=== PATIENT | female | born 1995 | race Two or more races ===

== ENCOUNTER 2016-08-01 13:02 | Outpatient (CLI) | payer SELFPAY ==
[~2016-08-01] VITALS: Ht 152.4 cm; Wt 58.0 kg
[2016-08-01 13:10] VITALS: BP 117/69; PULSE 113; RESP 18; Ht 152.4 cm; Wt 58.0 kg
[2016-08-01 14:00] LABS: ADD UMIC NO; URINE BILIRUBIN (Dip) NEGATIVE (NEGATIVE); URINE BLOOD (Dip) NEGATIVE (NEGATIVE); URINE COLOR LT. YELLOW (YELLOW); URINE GLUCOSE (Dip) NEGATIVE (NEGATIVE); URINE KETONES (Dip) NEGATIVE (NEGATIVE); URINE LEUKOCYTE ESTERASE (Dip) NEGATIVE (NEGATIVE); URINE NITRITE (Dip) NEGATIVE (NEGATIVE); URINE TOTAL PROTEIN (Dip) NEGATIVE (NEGATIVE); URINE UROBILINOGEN (Dip) 0.2 E.U./dL (0.1-1.0)
--- NOTE | 2016-08-01 14:03 | RADRPT ---
PROCEDURE: US OB biophysical profile. CLINICAL INDICATION: decreased movements, labor TECHNIQUE: Multiple sonographic images of the pelvis were obtained. The images were reviewed on a PACS workstation. COMPARISON: No prior studies are available for comparison. FINDINGS: There is a single viable intrauterine gestation. Cardiac activity is present with 144 beats per min james. There is a vertex presentation. The placenta is posterior. There is no evidence of placental abruption. There is a normal amount of amniotic fluid with an DARCI = 19.5 cm. Biophysical profile: movement 2/2 tone 2/2. breathing 2/2 DARCI 2/2 Total 10/07 RPTAT: AA . IMPRESSION: Normal biophysical profile. . .Shankar Viramontes MD, MD Date Time Electronically viewed and signed by .Shankar Viramontes MD, MD on 08/01/2016 14:03 .S/
--- NOTE | 2016-08-01 14:57 | TRIAGE ---
OB Triage Datetime Report Generated by CPN: 08/01/2016 14:57 Datetime: 08/01/2016 14:48 Labor Evaluation Frequency: irreg Monitor Mode: External Duration (sec)2399: 30-100 Quality: Mild Pattern: Normal: <= 5 Contractions in 10 Minutes Resting Tone [place]: Relaxed Heart Rate FHR Baseline Rate: 135 Monitor Mode: External US Variability: Moderate 6-25 bpm Accelerations: 15X15 Decelerations: None Category: Category I Pain Type: Cramping Pain Location: Abdomen; Back Datetime: 08/01/2016 14:15 Comments: maternal pulse, pt. sitting up Datetime: 08/01/2016 13:53 Labor Evaluation Frequency: x1 Monitor Mode: External Duration (sec)2399: 3 min Quality: Mild Pattern: Normal: <= 5 Contractions in 10 Minutes Resting Tone [place]: Relaxed Heart Rate FHR Baseline Rate: 145 Monitor Mode: External US Variability: Moderate 6-25 bpm Accelerations: 15X15 Decelerations: None Category: Category I Pain Assessment Pain Presence: Constant Pain Type: Cramping Pain Location: Back Pain Assessment Comments: pain @ lower pain _ lower abdominal Datetime: 08/01/2016 13:15 Vaginal Exam Dilatation (cms): 0.0 Exam By: wliu Datetime: 08/01/2016 13:14 Assessment Type: Triage Maternal Assessment Level of Consciousness: Fully Conscious DTR's/Clonus: DTRs 2+; No Clonus Headache: Denies Blurred Vision: No Respiratory Effort: Unlabored; Regular Rhythm; Equal Expansion Breath Sounds, Left: Clear and Equal Breath Sounds, Right: Clear and Equal Nausea/Vomiting: Denies RUQ Epigastric Pain: Denies Facial Edema: None Fall Risk Assessment History of Falling: (0) No Secondary Diagnosis: (0) No Ambulatory Aid: (0) Bedrest/Nurse Assist IV Therapy: (0) No Gait: (0) Normal/Bedrest/Immobile Mental Status: (0) Oriented to Own Ability Fall Score: 0 Fall Risk Score Definition: No Risk: No action required Datetime: 08/01/2016 13:13 EGA: 37.2 Datetime: 08/01/2016 13:11 Time of Arrival: 08/01/2016 13:00 Arrived By: Ambulatory Arrived From: Home Chief Complaint: pt. came to hospital c/o lower back and lower abdominal pain, pain level 9/10, co nt. pain. deny vag. bleeding, deny leaking Movement: Present Rupture of Membranes: Denies Vaginal Bleeding: None Vaginal Discharge: Denies Recent Sexual Intercouse: Denies Abdominal Trauma: Not Applicable Patient Complaints: Other Additional Patient Complaints: r/o labor Time Provider Notified: 08/01/2016 13:10 Provider Notified: Initial Plan: ua, bpp
--- NOTE | 2016-08-01 16:56 | QN ---
Documentation Comment iup 35 weeks co of ucx vss exam wnl os closed cat I a/p iup 37 weeks false labor CHRISTA PURCELL MD Aug 01, 2016 16:56
== END 2016-08-01 15:00 | disposition home or self-care (01) ==
LOC: OBT 13:02 → L-D 13:04 → OBT 15:00
PROVIDERS: ATTEND Obstetrics & Gynecology
DX: O62.9 Abnormality of forces of labor, unspecified (principal); O47.1 False labor at or after 37 completed weeks of gestation; Z3A.35 35 weeks gestation of pregnancy
CPT/HCPCS: 76818; 81003; G0463

== ENCOUNTER 2016-08-13 17:01 | Outpatient (CLI) | payer BC ==
[~2016-08-13] VITALS: Ht 152.4 cm; Wt 59.4 kg
[2016-08-13] MEDS ORDERED: PRENAT PO (17:15)
--- NOTE | 2016-08-13 19:27 | RADRPT ---
PROCEDURE: US OB biophysical profile. CLINICAL INDICATION: evaluation TECHNIQUE: Multiple sonographic images of the pelvis were obtained. The images were reviewed on a PACS workstation. COMPARISON: Obstetrical ultrasound from 08/01/2016 FINDINGS: There is a single viable intrauterine gestation. Cardiac activity is present with 139 beats per min james. There is a vertex presentation. The placenta is fundal. There is no evidence of placental abruption. There is a normal amount of amniotic fluid with an DARCI = 15.8 cm. Biophysical profile: movement 2/2 tone 2/2. breathing 2/2 DARCI 2/2 Total 10/07 RPTAT: AA . IMPRESSION: Normal biophysical profile. Physician Chago Date Time Electronically viewed and signed by Physician Chago on 08/13/2016 19:26 /
--- NOTE | 2016-08-13 20:04 | TRIAGE ---
OB Triage Datetime Report Generated by CPN: 08/13/2016 20:04 Datetime: 08/13/2016 19:58 Vaginal Exam Dilatation (cms): 0.0 Exam By: KHEMANI Datetime: 08/13/2016 19:18 Membrane Status: Intact Datetime: 08/13/2016 18:07 Labor Evaluation Frequency: OCC Monitor Mode: External Quality: Mild Pattern: Normal: <= 5 Contractions in 10 Minutes Resting Tone [place]: Relaxed Heart Rate FHR Baseline Rate: 130 Monitor Mode: External US FHR Baseline Changes: No Baseline Change Variability: Moderate 6-25 bpm Accelerations: 15X15 Decelerations: None Category: Category I Pain Assessment Pain Scale: 2 Pain Presence: Intermittent Pain Type: Cramping Pain Location: Abdomen Pain Relief Measures: Comfort Measures Datetime: 08/13/2016 17:57 Monitor Mode: External Monitor Mode: External US Datetime: 08/13/2016 17:39 Labor Evaluation Frequency: occ Monitor Mode: External Quality: Mild Pattern: Normal: <= 5 Contractions in 10 Minutes Resting Tone [place]: Relaxed Heart Rate FHR Baseline Rate: 140 Monitor Mode: External US FHR Baseline Changes: No Baseline Change Variability: Moderate 6-25 bpm Accelerations: 15X15 Decelerations: None Category: Category I Pain Assessment Pain Scale: 2 Pain Presence: Intermittent Pain Type: Cramping Pain Location: Abdomen Pain Relief Measures: Comfort Measures Datetime: 08/13/2016 17:16 Monitor Mode: External Monitor Mode: External US Datetime: 08/13/2016 17:10 Stage of : OB Triage Assessment Type: Triage Time of Arrival: 08/13/2016 17:10 EGA: 39.0 Arrived By: Ambulatory Arrived From: Office Chief Complaint: UC'S Movement: Present Contractions: Regular Time Contractions Began: 08/13/2016 12:00 Rupture of Membranes: Denies Vaginal Bleeding: None Vaginal Discharge: Denies Recent Sexual Intercouse: Denies Abdominal Trauma: Not Applicable Patient Complaints: Contractions Provider Notified: ARDALAN Initial Plan: SVE, Maternal Assessment Level of Consciousness: Fully Conscious DTR's/Clonus: DTRs 2+; No Clonus Headache: Denies Blurred Vision: No Respiratory Effort: Unlabored; Regular Rhythm; Equal Expansion Breath Sounds, Left: Clear and Equal Breath Sounds, Right: Clear and Equal Nausea/Vomiting: Denies RUQ Epigastric Pain: Denies Lower Extremities Edema: None Degree: None Upper Extremities Edema: None Degree: None Facial Edema: None Temperature Route: Axillary Fall Risk Assessment History of Falling: (0) No Secondary Diagnosis: (0) No Ambulatory Aid: (0) Bedrest/Nurse Assist IV Therapy: (0) No Gait: (0) Normal/Bedrest/Immobile Mental Status: (0) Oriented to Own Ability Fall Score: 0 Fall Risk Score Definition: No Risk: No action required Datetime: 08/01/2016 13:14 Fall Score: 0 Fall Risk Score Definition: No Risk: No action required Datetime: 08/01/2016 13:13 EGA: 37.2
--- NOTE | 2016-08-13 22:32 | PN ---
Triage Information Date/Time August 13, 2016 Weeks of Gestation 39 weeks : 1 Para: 0 Diabetes: none Hypertention: none Additional information 20 years old with IUP at 39 weeks with care at [facility], [place], operated by [facility] here in triage rule out labor. She denies leaking of fluid, vaginal bleeding or decreased movement. She denies any complaint. Her antepartum course was uncomplicated. Objective Exam General appearance: Alert and oriented 4 patient does not appear to be in any acute distress. Abdomen: Soft, gravid, fundal height consistent with gestational age. Abdomen nontender no rebound tenderness no guarding NST: Category 1 Vaginal exam 1 fingertip 30 % and high Repeat cervical exam did not show any change after ambulation and observation in triage Assessment/Plan IUP at 39 weeks No evidence of labor no evidence of PROM, NST category 1 patient observed and ambulates in triage for a couple hours. No cervical change noted. DC home Follow-up with OB clinic in a couple days recommended. Labor precaution and kick count discussed. Patient verbalized understanding LIZZETTE MARIE MD Aug 13, 2016 22:32
== END 2016-08-13 20:15 | disposition home or self-care (01) ==
LOC: L-D 17:01 → OBT 17:01
PROVIDERS: ATTEND Obstetrics & Gynecology
DX: O26.893 Other specified pregnancy related conditions, third trimester (principal); Z3A.39 39 weeks gestation of pregnancy
CPT/HCPCS: 76818; G0463